=== PATIENT | male | born 1985 | race Caucasian/White ===

== ENCOUNTER 2017-09-20 18:55 | Emergency (ER) | payer BC ==
[2017-09-20] MEDS ORDERED: Acetaminophen 500 MG Tab PO ONE (19:13)
--- NOTE | 2017-09-20 19:46 | EDM.PDOC ---
ED HPI GENERAL MEDICAL PROBLEM - General Chief Complaint: General Stated Complaint: SORE THROAT/TROUBLE BREATHING Time Seen by Provider: 09/20/17 19:12 Source of Information: Reports: Patient History Limitations: Reports: No Limitations - History of Present Illness INITIAL COMMENTS - FREE TEXT/NARRATIVE: HISTORY AND PHYSICAL: History of present illness: Patient is a 31-year-old male who presents to the emergency room with complaints of sore throat, cough and difficulty breathing 3 days. He states he has used [id number] medications without any relief. Has had a subjective fever and chills. Denies any smoking history. Denies any respiratory illnesses or diseases. No abdominal pain, nausea, vomiting, diarrhea or constipation. Review of systems: As per history of present illness and below otherwise all systems reviewed and negative. Past medical history: As per history of present illness and as reviewed below otherwise noncontributory. Surgical history: As per history of present illness and as reviewed below otherwise noncontributory. Social history: No reported history of drug or alcohol abuse. Family history: As per history of present illness and as reviewed below otherwise noncontributory. Physical exam: General: Well-developed and well-nourished 31-year-old male. Alert and oriented. Nontoxic appearing and in no acute distress. HEENT: Atraumatic, normocephalic, pupils equal and reactive bilaterally, negative for conjunctival pallor or scleral icterus, mucous membranes moist, erythema noted to the posterior oropharynx without exudate or pillar shifting, neck supple, nontender, trachea midline. No drooling or trismus noted. No meningeal signs Lungs: Diminished to the bases bilaterally, breath sounds equal bilaterally, chest nontender. Nonproductive cough noted. Heart: S1S2, regular rate and rhythm without overt murmur Abdomen: Soft, nondistended, nontender. Negative for masses or hepatosplenomegaly. Negative for costovertebral tenderness. Pelvis: Stable nontender. Genitourinary: Deferred. Rectal: Deferred. Skin: Intact, warm, dry. No lesions or rashes noted. Extremities: Atraumatic, negative for cords or calf pain. Neurovascular unremarkable. Neuro: Awake, alert, oriented. Cranial nerves II through XII unremarkable. Cerebellum unremarkable. Motor and sensory unremarkable throughout. Exam nonfocal. Notes: Tylenol given for fever. Diagnostics: CXR, Strep Screen Therapeutics: Tylenol Impression: [] Plan: 1. Take antibiotic as directed. Use inhaler as prescribed. 2. Tylenol and/or ibuprofen as needed for pain and fever management. Phenergan with codeine as needed for moderate to severe discomfort. This is a narcotic and will cause drowsiness, do not take it will driving or needing to be functioning outside of the house. 3. Warm salt water gargles 3-4 times daily. 4. Follow-up with your primary caregiver next week, or sooner as needed. Return to the ED as needed and as discussed. Definitive disposition and diagnosis as appropriate pending reevaluation and review of above. throat Pain Score (Numeric/FACES): 8 - Related Data Allergies Allergy/AdvReac Type Severity Reaction Status Date / Time No Known Allergies Allergy Verified 09/20/17 19:04 Home Meds: Home Meds . [No Known Home Meds] 09/20/17 [History] Past Medical History - Past Surgical History GI Surgical History: Reports: Appendectomy Social & Family History - Family History Family Medical History: Noncontributory - Tobacco Use Smoking Status *Q: Never Smoker - Recreational Drug Use Recreational Drug Use: No ED ROS GENERAL - Review of Systems Review Of Systems: ROS reveals no pertinent complaints other than HPI. ED EXAM, GENERAL - Physical Exam Exam: See Below (See dictation) Course - Vital Signs Last Recorded V/S: Last Vital Signs Temp 101.6 F H 09/20/17 18:55 Pulse 105 H 09/20/17 18:55 Resp 18 09/20/17 18:55 BP 135/64 09/20/17 18:55 Pulse Ox 96 09/20/17 18:55 - Orders/Labs/Meds Orders: Active Orders 24 hr Category Date Time Status Chest 2V [CR] Stat Exams 09/20/17 19:13 Taken CULTURE STREP A CONFIRMATION [RM] Stat Lab 09/20/17 19:33 Results STREP SCRN A RAPID W CULT CONF [RM] Stat Lab 09/20/17 19:33 Ordered Meds: Medications Discontinued Medications Generic Name Dose Route Start Last Admin Trade Name Freq PRN Reason Stop Dose Admin Acetaminophen 1,000 mg 09/20/17 19:13 09/20/17 19:32 Tylenol Extra Strength PO 09/20/17 19:14 1,000 mg ONETIME ONE Administration Departure - Departure Time of Disposition: 19:55 Disposition: Home, Self-Care 01 Clinical Impression: Pharyngitis Qualifiers: Pharyngitis/tonsillitis etiology: unspecified etiology Qualified Code(s): J02.9 - Acute pharyngitis, unspecified - Discharge Information Instructions: Pharyngitis, [id number] Referrals: PCP,None [Primary Care Provider] - Forms: ED Department Discharge Additional Instructions: The following information is given to patients seen in the emergency department who are being discharged to home. This information is to outline your options for follow-up care. We provide all patients seen in our emergency department with a follow-up referral. The need for follow-up, as well as the timing and circumstances, are variable depending upon the specifics of your emergency department visit. If you don't have a primary care physician on staff, we will provide you with a referral. We always advise you to contact your personal physician following an emergency department visit to inform them of the circumstance of the visit and for follow-up with them and/or the need for any referrals to a consulting specialist. The emergency department will also refer you to a specialist when appropriate. This referral assures that you have the opportunity for follow-up care with a specialist. All of these measure are taken in an effort to provide you with optimal care, which includes your follow-up. Under all circumstances we always encourage you to contact your private physician who remains a resource for coordinating your care. When calling for follow-up care, please make the office aware that this follow-up is from your recent emergency room visit. If for any reason you are refused follow-up, please contact the [facility] Emergency Department at and asked to speak to the emergency department charge nurse. [facility] [address] [place] [phone] 1. Take antibiotic as directed. Use inhaler as prescribed. 2. Tylenol and/or ibuprofen as needed for pain and fever management. Phenergan with codeine as needed for moderate to severe discomfort. This is a narcotic and will cause drowsiness, do not take it will driving or needing to be functioning outside of the house. 3. Warm salt water gargles 3-4 times daily. 4. Follow-up with your primary caregiver next week, or sooner as needed. Return to the ED as needed and as discussed. - My Orders Last 24 Hours: My Active Orders 09/20/17 19:13 Chest 2V [CR] Stat 09/20/17 19:33 CULTURE STREP A CONFIRMATION [RM] Stat STREP SCRN A RAPID W CULT CONF [RM] Stat - Assessment/Plan Last 24 Hours: My Active Orders 09/20/17 19:13 Chest 2V [CR] Stat 09/20/17 19:33 CULTURE STREP A CONFIRMATION [RM] Stat STREP SCRN A RAPID W CULT CONF [RM] Stat
--- NOTE | 2017-09-23 09:54 | CR ---
EXAM DATE: 09/20/17 PATIENT'S AGE: 31 Patient: ANNIKA ENNIS Facility: [place], [place] Site . Site : 1985 Study: XRay Chest [id number]/[id number] 7:28:29 PM Ordering Physician: Doctor Larry Final Report: Clinical INDICATION: Shortness of breath. Dyspnea. FINDINGS: The cardiomediastinal silhouette, lung parenchyma, pulmonary vasculature and pleural surfaces are all normal in appearance. The bony thorax appears intact. IMPRESSION: Negative study. Dictated by Carl Forrest MD @ Sep 20 2017 7:51PM (Electronic Signature) Report Signed by Proxy. KATHY
== END 2017-09-20 20:11 | disposition home or self-care (01) ==
LOC: MW.ED 18:55
DX: J02.9 Acute pharyngitis, unspecified (principal)
CPT/HCPCS: 71046; 87081; 87880; 99285; A9270

== ENCOUNTER 2022-01-26 22:49 | Emergency (ER) | payer SELFPAY ==
[2022-01-27 00:21] LABS: CARBON DIOXIDE,CO2 26.6 mmol/L (21.0-32.0)
== END 2022-01-27 00:46 | disposition home or self-care (01) ==
LOC: MERGE 22:49 → MW.ED 22:49 → EDBD 22:49 → MW.ED 01-27 00:46
DX: R00.2 Palpitations (principal)
CPT/HCPCS: 36415; 71045; 71045-26; 80053; 84484; 85025; 93005; 93010; 99284; 99285

== ENCOUNTER 2022-01-26 23:02 | Emergency (ER) | payer SELFPAY | END 2022-01-27 | disposition left against medical advice (07) | LOC: MW.ED 23:02 | DX: Z53.21 Procedure and treatment not carried out due to patient leaving prior to being seen by health care provider (principal) ==